=== PATIENT | female | born 1995 | race Caucasian/White ===

== ENCOUNTER → 2018-04-22 | Outpatient (CLI) | payer BC ==
--- NOTE | 2018-04-22 15:18 | US ---
EXAMINATION TYPE: US thyroid st tissue head/neck DATE OF EXAM: 04/22/2018 COMPARISON: NONE CLINICAL HISTORY: J03.90 Acute tonsillitis, unspecified. Difficulty swallowing x 4 days, neck swellin g GLAND SIZE: Right Lobe: 5.7 x 1.7 x 1.7 cm Overall Parenchyma: homogenous Left Lobe: 4.3 x 1.5 x 1.5 cm Overall Parenchyma: homogeneous Isthmus Thickness: 0.7 cm NODULES RIGHT: # of nodules measured on right: 0 LEFT: # of nodules measured on left: 0 ISTHMUS: # of nodules measured in the isthmus: 1 1. 1.4 X 0.8 x 1.9 cm hypoechoic mixed nodule at the mid isthmus with well-defined margins. This no dule is wider than tall and shows intranodular vascularity. Prior size: no previous Bilateral neck scanned, right neck: multiple lymph nodes seen with largest measuring 1.7 x 1.4 x 1.2c m, left neck: multiple lymph nodes seen with largest measuring 1.8 x 0.9 x 1.2cm, multiple hypoechoic structures seen left neck inferior to left thyroid lobe with largest measuring 1.4 x 0.8 x 0.8cm. There is asymmetric prominence to right thyroid lobe. Thyroid gland is overall homogeneous. Suspiciou s enlarged right neck lymph nodes with eccentric cortical thickening are present. Left-sided lymph no po are prominent but smaller in size but show loss of fatty hilum. IMPRESSION: Concerning 1.4 cm isthmus nodule with suspicious bilateral neck adenopathy. Follow-up advised.
== END ==
LOC: RADUSWWP 10:24
PROVIDERS: ATTEND Family Medicine
DX: J03.90 Acute tonsillitis, unspecified (principal)
CPT/HCPCS: 76536

== ENCOUNTER 2019-02-04 09:10 | Day surgery (SDC) | payer OTHER ==
[2019-02-03 10:43] VITALS: BMI 42.8
[~2019-02-04 09:10] MED LIST: LACTATED RINGERS 1,000 ML IV SCH; LIDOCAINE 1% 20 ML VIAL (10MG/ML) FOR IV START INTRADERMA PRN
[2019-02-04 09:32] VITALS: RESP 18; TEMP 98
[2019-02-04] MEDS ORDERED: fentaNYL (PF) 50 MCG/ML 2 ML AMP ONE (09:55)
[2019-02-04] MEDS ORDERED: PROPOFOL 10 MG/ML 20 ML VIAL IV ONE (09:55)
[2019-02-04] MEDS ORDERED: MIDAZOLAM 2 MG/2 ML VIAL ONE (09:55)
[2019-02-04] MEDS ORDERED: IV FLUID CONTINUATION 750 ML IV ONE (10:16)
--- NOTE | 2019-02-04 10:21 | P.PCN ---
Date of Procedure: 02/04/19 Procedure(s) Performed: BRIEF HISTORY: Patient is a 23-year-old pleasant white female, scheduled for an elective colonoscopy as a part of evaluation of prior history of colon polyps. Last colonoscopy was 3 years ago and was noted to have a tubular adenoma. She also comments of intermittent rectal bleeding. PROCEDURE PERFORMED: Colonoscopy with biopsy and snare polypectomy. PREOPERATIVE DIAGNOSIS: History of colon polyps/intermittent rectal bleeding. IV sedation per Anesthesia. PROCEDURE: After informed consent was obtained, the patient, was brought into the endoscopy unit. IV sedation was administered by Anesthesia under continuous monitoring. Digital rectal examination was normal. Initially the Olympus CF-160 flexible video colonoscope was then inserted in the rectum, gradually advanced into the cecum without any difficulty. Careful examination was performed as the scope was gradually being withdrawn. Ileocecal valve and the appendiceal orifice were visualized and appeared normal. Prep was excellent. Mucosa of the cecum, ascending colon, transverse colon appeared normal. In the descending colon there was a 5 limited polyp that was removed by snare polypectomy. Rest of the, descending colon, sigmoid colon, and rectum appeared normal. In the distal rectum there was mild patchy areas of erythema noted which was biopsied to rule out idiopathic proctitis. Retroflexion was performed in the rectum and no lesions were seen. The patient tolerated the procedure well. IMPRESSION: 5 mm descending colon polyp status post polypectomy Mild distal proctitis RECOMMENDATIONS: Findings of this examination were discussed with the patient as well as a family. She was advised to follow with the biopsy results. She was advised to have a repeat colonoscopy in 5 years..
[2019-02-04 10:40] VITALS: BP 112/74; PULSE 69
== END 2019-02-04 10:55 | disposition home or self-care (01) ==
LOC: ORWHC2ENDO 09:10
PROVIDERS: ATTEND Internal Medicine Gastroenterology
DX: K63.5 Polyp of colon (principal); K62.89 Other specified diseases of anus and rectum; E66.01 Morbid (severe) obesity due to excess calories; Z86.010 Personal history of colon polyps; Z91.018 Allergy to other foods; Z68.41 Body mass index [BMI] 40.0-44.9, adult
CPT/HCPCS: 81025; 88305; 45380; 45385; J2250; J3010; J2704

== ENCOUNTER → 2020-05-10 | Outpatient (CLI) | payer MEDICAID, OTHER ==
[2020-05-10 21:07] LABS: Gliadin AB IgA, Deaminated NEGATIVE (NEGATIVE); Gliadin AB IgA, Unit 1.5 U/mL; Gliadin AB IgG, Deaminated NEGATIVE (NEGATIVE)
== END | disposition home or self-care (01) ==
LOC: LABWHC1 10:29
PROVIDERS: ATTEND Nurse Practitioner
DX: K58.9 Irritable bowel syndrome, unspecified (principal); K62.5 Hemorrhage of anus and rectum
CPT/HCPCS: 36415; 83516; 83993; 85652; 86140